=== PATIENT | female | born 1985 | race Two or more races ===

== ENCOUNTER 2020-09-14 17:39 | Emergency (ER) | payer OTHER ==
[~2020-09-14] VITALS: Ht 144.8 cm; Wt 57.2 kg
[2020-09-14] MEDS ORDERED: GAVISCON (19:05)
[2020-09-15] MEDS ORDERED: CIPRO500 MG PO (05:27)
[2020-09-15] MEDS ORDERED: PEPCID AC20 MG PO (05:28)
== END 2020-09-15 05:38 | disposition home or self-care (01) ==
LOC: ER 17:39
DX: N39.0 Urinary tract infection, site not specified (principal); R10.11 Right upper quadrant pain